=== PATIENT | female | born 1995 | race African-American/Black ===

== ENCOUNTER 2016-06-05 13:33 | Emergency (ER) | payer OTHER ==
[2016-06-05 13:41] VITALS: BP 128/68; PULSE 64; TEMP 97.9; BMI 37.3
--- NOTE | 2016-06-05 14:37 | PDOC ---
History of Present Illness - General Chief Complaint: Pain Stated Complaint: PAIN Time Seen by Provider: 06/05/16 13:49 History Source: Patient Exam Limitations: No Limitations - History of Present Illness Initial Comments: 06/05/16 14:33 20-year-old female presents the ED with worsening hydranitis suppurativa over the past few weeks. Patient states has not had time to go to her family practice physician assistant so decided come here. Patient also complaining secondary to pain that she's been a little nauseated without abdominal pain, fever or chills. Patient denies history of MRSA. Timing/Duration: getting worse Severity: mild, moderate Associated Symptoms: reports: denies symptoms Past History - Past Medical History Allergies/Adverse Reactions: Allergies Allergy/AdvReac Type Severity Reaction Status Date / Time hydrocodone bitartrate Allergy Nausea Verified 08/21/14 12:21 [From Vicodin] Home Medications: Ambulatory Orders NK [No Known Home Medication] 06/05/16 Anemia: Yes Psychiatric Problems: Yes (DEPRESSION.) Suicide Attempt (Hx): No Other medical history: hydranitis suppurativa - Surgical History Abdominal Surgery: No - Immunization History Immunization Up to Date: Yes - Psycho/Social/Smoking Cessation Hx Anxiety: No Suicidal Ideation: No Smoking Status: No Smoking History: Never smoked Have you smoked in the past 12 months: No Number of Cigarettes Smoked Daily: 0 Information on smoking cessation initiated: No Hx Alcohol Use: No Drug/Substance Use Hx: No Substance Use Type: None Patient Lives Alone: No Lives with/in: parents Review of Systems - Review of Systems Able to Perform ROS?: Yes Constitutional: No: Symptoms Reported HEENTM: No: Symptoms Reported Respiratory: No: Symptoms reported Cardiac (ROS): No: Symptoms Reported ABD/GI: Yes: Nausea : No: Symptoms Reported Musculoskeletal: No: Symptoms Reported Integumentary: Yes: See HPI Neurological: No: Symptoms reported Endocrine: No: Symptoms Reported Hematologic/Lymphatic: No: Symptoms Reported *Physical Exam - Vital Signs Last Vital Signs Temp Pulse Resp BP Pulse Ox 97.9 F 64 18 128/68 100 06/05/16 13:36 06/05/16 13:36 06/05/16 13:36 06/05/16 13:36 06/05/16 13:36 - Physical Exam General Appearance: Yes: Nourished, Appropriately Dressed. No: Apparent Distress HEENT: negative: Pale Conjunctivae Neck: positive: Supple Respiratory/Chest: positive: Lungs Clear, Normal Breath Sounds. negative: Respiratory Distress, Accessory Muscle Use Cardiovascular: positive: Regular Rhythm, Regular Rate. negative: Murmur Gastrointestinal/Abdominal: positive: Soft. negative: Tenderness Musculoskeletal: negative: CVA Tenderness Extremity: positive: Normal Capillary Refill. negative: Pedal Edema Integumentary: positive: Other (noted draining purulent erythematous papules to bilateral inguinal and inner thighs. ) Neurologic: positive: Motor Strength 5/5 (ambulatory), Other Medical Decision Making - Medical Decision Making 06/05/16 15:04 20-year-old hydradenitis supporativa to bilateral inguinal an inner thigh region. Patient states secondary to discomfort has had nausea but denies fever or chills. Patient ordered for urine urine culture urine and will discharge home with proper antibiotics once urine is resulted. 06/05/16 15:12 Laboratory Tests 06/05/16 14:40 Urine Ketones Negative Urine Blood 1+ H Urine HCG, Qual Negative 06/05/16 16:30 Laboratory Tests 06/05/16 14:40 Urine Blood 1+ H Urine Nitrite Negative Ur Leukocyte Esterase Negative Urine WBC 2 Urine HCG, Qual Negative Patient will be discharged home with Bactrim. Patient to follow up with family practice physician assistant. Patient requesting referral to surgeon. *DC/Admit/Observation/Transfer Diagnosis at time of Disposition: Hidradenitis suppurativa - Discharge Dispostion Disposition: HOME Condition at time of disposition: Improved - Referrals Referrals: Arsalan Guo MD [Primary Care Provider] - Alexandria Santiago MD [Staff Physician] - - Patient Instructions Printed Discharge Instructions: Hidradenitis Suppurativa Additional Instructions: Please take Bactrim as prescribed and use topical ointment as recommended. Please keep area clean and try to wear cotton under briefs. Also follow-up with your family practice physician assistant.
[2016-06-05 14:48] LABS: URINE APPEARANCE CLEAR; URINE BILIRUBIN NEGATIVE (NEGATIVE); URINE COLOR LTYELLOW; URINE GLUCOSE (UA) NEGATIVE (NEGATIVE); URINE KETONE NEGATIVE (NEGATIVE); URINE LEUK ESTERASE NEGATIVE (NEGATIVE); URINE NITRITE NEGATIVE (NEGATIVE); URINE PROTEIN NEGATIVE (NEGATIVE); URINE UROBILINOGEN NEGATIVE E.U./dl (0.2-1.0)
[2016-06-05 15:00] LABS: URINE BLOOD 1+ (NEGATIVE)
--- NOTE | 2016-06-05 15:00 | PDOC ---
*Physical Exam - Vital Signs Last Vital Signs Temp Pulse Resp BP Pulse Ox 97.9 F 64 18 128/68 100 06/05/16 13:36 06/05/16 13:36 06/05/16 13:36 06/05/16 13:36 06/05/16 13:36 - Physical Exam Comments: 06/05/16 15:00 MIDLEVEL NOTE Pt seen by Midlevel Provider under my direct supervision. Pt interviewed and examined. Ancillary studies reviewed. I agree with plan as outlined by Midlevel Provider. ED Treatment Course - ADDITIONAL ORDERS Additional order review: Laboratory Results 06/05/16 14:40 Urine HCG, Qual Negative *DC/Admit/Observation/Transfer Diagnosis at time of Disposition: Hidradenitis suppurativa - Discharge Dispostion Disposition: HOME Condition at time of disposition: Improved - Prescriptions Prescriptions: Sulfamethoxazole/Trimethoprim [Bactrim Ds -] 1 tab PO BID #14 tablet Mupirocin Ointment [Bactroban 2% Ointment -] 1 applic TP TID #1 tube - Referrals Referrals: Arsalan Guo MD [Primary Care Provider] - Alexandria Santiago MD [Staff Physician] - - Patient Instructions Printed Discharge Instructions: Hidradenitis Suppurativa Additional Instructions: Please take Bactrim as prescribed and use topical ointment as recommended. Please keep area clean and try to wear cotton under briefs. Also follow-up with your supply tech. - Post Discharge Activity Work/School Note: Back to Work
[2016-06-05 15:49] LABS: URINE MUCUS RARE; URINE RBC 2 /hpf (0-3); URINE WBC 2 /hpf (3-5)
== END 2016-06-05 16:55 | disposition home or self-care (01) ==
LOC: JER 13:33
DX: L73.2 Hidradenitis suppurativa (principal); D64.9 Anemia, unspecified; F32.9 Major depressive disorder, single episode, unspecified
CPT/HCPCS: 81003; 81015; 84703; 87086; 99282-25

== ENCOUNTER 2016-10-22 01:29 | Inpatient (IN) | payer OTHER ==
--- NOTE | 2016-10-22 02:56 | PDOC ---
History of Present Illness - General Chief Complaint: Pain, Acute Stated Complaint: ABDOMINAL PAIN Time Seen by Provider: 10/22/16 02:56 - History of Present Illness Initial Comments: 21 year old with PMH of hydratentis supporitiva presenting with vaginal bleeding and abdominal pain for the past 11 days. Her LMP was 09/07 and she assumed that this bleeding was from her expected period, however, she has continued to bleed sine 10/11 and has began passing clots which has been concerning. She states that she goes through about 10 "10" hour pads per day. She describes the abdominal pain as sharp across her suprapubic region and better with heat but worse with abdominal flexion or bearing down. She also admits to some occasional nausea. Denies urinary symptoms. She is not on oral contraceptives and does not use barrier protection either. She denies fevers, chills, vomiting, diarrhea, constipation ,chest pain, or other sick symptoms. 10/22/16 03:34 10/22/16 07:18 Past History - Past Medical History Allergies/Adverse Reactions: Allergies Allergy/AdvReac Type Severity Reaction Status Date / Time hydrocodone bitartrate Allergy Nausea Verified 10/22/16 02:21 [From Vicodin] Home Medications: Ambulatory Orders NK [No Known Home Medication] 10/22/16 Anemia: Yes Psychiatric Problems: Yes (DEPRESSION.) Suicide Attempt (Hx): No - Surgical History Abdominal Surgery: No - Immunization History Immunization Up to Date: Yes - Psycho/Social/Smoking Cessation Hx Anxiety: No Suicidal Ideation: No Smoking Status: No Smoking History: Never smoked Have you smoked in the past 12 months: No Number of Cigarettes Smoked Daily: 0 Information on smoking cessation initiated: No Hx Alcohol Use: No Drug/Substance Use Hx: No Substance Use Type: None Review of Systems - Review of Systems Constitutional: No: Chills, Diaphoresis, Fever HEENTM: No: Recent change in vision Respiratory: No: Cough, Shortness of Breath Cardiac (ROS): No: Chest Pain, Lightheadedness, Palpitations ABD/GI: Yes: Nausea. No: Abdominal Distended, Constipated, Diarrhea, Vomiting : No: Burning, Dysuria, Discharge *Physical Exam - Vital Signs Last Vital Signs Temp Pulse Resp BP Pulse Ox 98.2 F 91 H 20 120/84 100 10/22/16 02:21 10/22/16 02:21 10/22/16 02:21 10/22/16 02:21 10/22/16 02:21 - Physical Exam General Appearance: Yes: Nourished, Appropriately Dressed. No: Apparent Distress HEENT: positive: EOMI, MERLY, Normal ENT Inspection, Normal Voice Neck: positive: Trachea midline, Normal Thyroid, Supple. negative: Tender, Rigid Respiratory/Chest: positive: Lungs Clear, Normal Breath Sounds. negative: Chest Tender, Respiratory Distress, Accessory Muscle Use Cardiovascular: positive: Regular Rhythm, Regular Rate, S1, S2. negative: Edema , Murmur Female Pelvic Exam: positive: cervical os closed, normal adnexa (Fullness in adnexa bilaterally), vaginal bleeding. negative: normal external exam (blood around the external vagina) Gastrointestinal/Abdominal: positive: Normal Bowel Sounds, Tender (Suprapubic tenderness diffusely across the abdomino-pelvic fold. ), Flat, Soft Neurologic: positive: Fully Oriented, Alert, Normal Mood/Affect ED Treatment Course - LABORATORY CBC & Chemistry Diagram: 10/22/16 05:31 10/22/16 05:31 Medical Decision Making - Medical Decision Making 21 year old female with continued vaginal bleeding. Pelvic exam significant fro clots in the vagina and H&H significant for HgB of 7.0. Patient asymptomatic with VSS. Signed out to Dr. Guzman at 07:00. Pending repeat H&H @ 09 :00 and possible admission for tranfusion. TVUS also pending. 10/22/16 07:18 *DC/Admit/Observation/Transfer Diagnosis at time of Disposition: Anemia, Vaginal bleeding - Attestations Physician Attestion: 10/22/16 07:23 I, Dr. Nam Solano, attest that this document has been prepared under my direction and personally reviewed by me in its entirety. I further attest, that it accurately reflects all work, treatment, procedures and medical decision -making performed by me.
[2016-10-22 05:40] LABS: BASOPHIL 0.7 % (0-2.0); RDW 17.9 % (11.6-15.6); WHITE BLOOD COUNT 7.7 K/mm3 (4.0-10.0)
[2016-10-22 05:44] LABS: EOSINOPHIL 1.7 % (0-4.5); MCH 20.6 pg (25.7-33.7); MCHC 30.6 g/dl (32.0-36.0); MEAN CELL VOLUME 67.3 fl (80-96); MEAN PLT VOLUME 7.2 fl (7.5-11.1); NEUTROPHILS 53.5 % (42.8-82.8); PLATELET COUNT 599 K/MM3 (134-434)
[2016-10-22 06:00] LABS: INR 1.22 (0.82-1.09); PROTHROMBIN TIME (PATIENT) 13.5 SEC (9.98-11.88)
[2016-10-22 06:01] LABS: ALBUMIN 2.5 g/dl (3.4-5.0); ANION GAP 3 (8-16); CO2 30 mmol/L (21-32); CREATININE 0.8 mg/dL (0.55-1.02); GLUCOSE,RANDOM 86 mg/dL (74-106); SGOT/AST 16 U/L (15-37); SGPT/ALT 15 U/L (12-78)
[2016-10-22 06:04] LABS: ALK PHOS 89 U/L (45-117); BILIRUBIN,TOTAL 0.2 mg/dL (0.2-1.0); TOT PROT 8.4 g/dl (6.4-8.2)
--- NOTE | 2016-10-22 06:24 | PDOC ---
Attending Attestation - Resident Resident Name: Nam Solano - HPI HPI: 10/22/16 06:18 Pt comes with vag bleeding x 10 days. Recently she is bleeding clots. Pt doesn 't feel dizzy. - Physicial Exam PE: 10/22/16 06:22 Normal exam. Pt has active vag bleed, but not brisk on vag speculum exam. - Medical Decision Making 10/22/16 06:23 Anemia; Hb 7.0 Pt will have a 4 hour hemoglobin level drawn later this morning. Pt will also have a sonogram of her pelvis. Urine HCG is negative. Pt used to see Dr. España, but she has an appointment with Dr. Enrique next week. Dr. Enrique is debone supervisor. He should be consulted by phone in the morning, one 4hr Hb?HCT and sonogram results are back
--- NOTE | 2016-10-22 08:19 | PDOC ---
*Physical Exam - Vital Signs Last Vital Signs Temp Pulse Resp BP Pulse Ox 98.2 F 87 16 136/65 100 10/22/16 02:21 10/22/16 06:07 10/22/16 06:07 10/22/16 06:07 10/22/16 06:07 ED Treatment Course - LABORATORY CBC & Chemistry Diagram: 10/22/16 09:20 10/22/16 05:31 - ADDITIONAL ORDERS Additional order review: Laboratory Results 10/22/16 10/22/16 10/22/16 05:31 05:31 05:31 INR 1.22 H Sodium 139 Potassium 4.1 Chloride 106 Carbon Dioxide 30 Anion Gap 3 L BUN 11 Creatinine 0.8 Creat Clearance w eGFR > 60 Random Glucose 86 Calcium 8.0 L Total Bilirubin 0.2 D AST 16 D ALT 15 Alkaline Phosphatase 89 D Total Protein 8.4 H Albumin 2.5 L Urine HCG, Qual Blood Type O POSITIVE Antibody Screen Negative Spec Expiration Date 10/22/16 10/22/16 10/22/16 05:28 03:54 03:54 INR Sodium Cancelled Potassium Cancelled Chloride Cancelled Carbon Dioxide Cancelled Anion Gap Cancelled BUN Cancelled Creatinine Cancelled Creat Clearance w eGFR Cancelled Random Glucose Cancelled Calcium Cancelled Total Bilirubin Cancelled AST Cancelled ALT Cancelled Alkaline Phosphatase Cancelled Total Protein Cancelled Albumin Cancelled Urine HCG, Qual Negative Blood Type Cancelled Antibody Screen Cancelled Spec Expiration Date Cancelled 10/22/16 03:54 INR Cancelled Sodium Potassium Chloride Carbon Dioxide Anion Gap BUN Creatinine Creat Clearance w eGFR Random Glucose Calcium Total Bilirubin AST ALT Alkaline Phosphatase Total Protein Albumin Urine HCG, Qual Blood Type Antibody Screen Spec Expiration Date 10/22/16 10/22/16 05:31 03:54 RBC 3.39 L Cancelled MCV 67.3 L Cancelled MCHC 30.6 L Cancelled RDW 17.9 H D Cancelled MPV 7.2 L Cancelled Neutrophils % 53.5 Cancelled Lymphocytes % 40.5 H Cancelled Monocytes % 3.6 L Cancelled Eosinophils % 1.7 Cancelled Basophils % 0.7 Cancelled Medical Decision Making - Medical Decision Making 10/22/16 09:54 "21 year old female with continued vaginal bleeding. Pelvic exam significant for clots in the vagina and H&H significant for HgB of 7.0. Patient asymptomatic with VSS." 10/22/16 10:06 HgB now 6.6. PAtient remembers she receives Remicade (infliximab) IV every month for Hidradenitis Suppurativa treatment for 3 years. Possible side effect. Spoke to OBGYN Dr. Roberts who agreed to have patient admitted to hospitalist/ observation and he/ll see the patient there. 10/22/16 10:22 *DC/Admit/Observation/Transfer Diagnosis at time of Disposition: Anemia, Vaginal bleeding - Discharge Dispostion Admit: Yes - Referrals Referrals: Arsalan Guo MD [Primary Care Provider] - Roni Enrique MD [Staff Physician] - - Patient Instructions - Post Discharge Activity
[2016-10-22 09:32] LABS: WHITE BLOOD COUNT 6.7 K/mm3 (4.0-10.0)
[2016-10-22 09:33] LABS: BASOPHIL 0.6 % (0-2.0); EOSINOPHIL 1.5 % (0-4.5); MCH 20.9 pg (25.7-33.7); MCHC 31.1 g/dl (32.0-36.0); MEAN CELL VOLUME 67.2 fl (80-96); MEAN PLT VOLUME 6.7 fl (7.5-11.1); NEUTROPHILS 48.5 % (42.8-82.8); PLATELET COUNT 522 K/MM3 (134-434); RDW 18.2 % (11.6-15.6)
--- NOTE | 2016-10-22 11:12 | HP ---
CHIEF COMPLAINT: shortness of breath and vaginal bleeding PCP: Dr. Guo HISTORY OF PRESENT ILLNESS: 21 yr old woman with Hidradenitis Suppurativa on infliximab infusion monthly with delayed dosing this month, presents with SOB for one day, lower abdominal pain and prolonged vaginal bleeding and watery vaginal discharge since october 14. Abdominal pain is nonradiating, marked in the lower quadrants, started last night, continuos, no alleviating or exacerbating factors. Normally receives infliximab on October 07, but was unable to get appointment till the . Usually menstruation lasts 4 days and occurs regularly between the or of each the month. vaginal discharge started few days ago, not foul smelling. a/w loss of appetite for past two days, constipation, shortness of breath on exertion. denies chest pain, palpitation, headache, n/v, diarrhea. ER course was notable for: (1) repeat h/h, with drop from 7.0 to 6.6 in 4 hours. Social History: sexually active with one male partner, not on oral control, does not use condoms. denies hx of STD's Allergies hydrocodone bitartrate [From Vicodin] Allergy (Verified 10/22/16 02:21) Nausea PHYSICAL EXAMINATION Vital Signs - 24 hr 10/22/16 10/22/16 10/22/16 02:21 06:07 09:54 Temperature 98.2 F Pulse Rate 91 H Pulse Rate [ 87 62 Right Radial] Respiratory 20 16 16 Rate Blood Pressure 120/84 Blood Pressure 136/65 106/54 [Right Arm] O2 Sat by Pulse 100 100 100 Oximetry (%) GENERAL: Awake, alert, and fully oriented, in no acute distress. EYES: Pupils equal, round and reactive to light, extraocular movements intact, sclera anicteric, conjunctiva clear. No lid lag. EARS, NOSE, THROAT: ooropharynx clear without exudates. Moist mucous membranes. NECK: supple without lymphadenopathy, JVD, or masses. LUNGS: Breath sounds equal, clear to auscultation bilaterally. No wheezes, and no crackles. No accessory muscle use. HEART: Regular rate and rhythm, normal S1 and S2 without murmur, rub or gallop. ABDOMEN: Soft, diffusely mildy tender, marking in the lower quadrants and suprapubically, not distended, normoactive bowel sounds, + guarding in right lower quadrant, no rebound, no masses. MUSCULOSKELETAL: no CVA tenderness. UPPER EXTREMITIES: 2+ radial pulses, warm, well-perfused. No cyanosis. No clubbing. No peripheral edema. NEUROLOGICAL: facial symmetry, Normal speech. Normal gait. PSYCHIATRIC: Cooperative. Good eye contact. Appropriate mood and affect. PELVIC: flat macular ulcers without discharge in groin area throughout, active dark red clots expressed from vagina with scant brb Laboratory Results - last 24 hr 10/22/16 10/22/16 05:28 05:31 Corrected WBC (auto) RBC Hgb Hct MCV MCH MCHC RDW Plt Count MPV Neutrophils % Lymphocytes % Monocytes % Eosinophils % Basophils % Nucleated RBC % Hypersegmented Neuts Hypochromia Toxic Granulation Dohle Bodies Tyler Rods Platelet Estimate Platelet Comment RBC Morphology Polychromasia Poikilocytosis Basophilic Stippling Anisocytosis Microcytosis Macrocytosis Spherocytes Siderocytes Sickle Cells Target Cells Tear Drop Cells Ovalocytes Stomatocytes Helmet Cells [place] Bodies [place] Rings Yvrose Cells Acanthocytes (Spur) Rouleaux Fragmented RBCs Schistocytes Morphology Comment INR Sodium 139 Potassium 4.1 Chloride 106 Carbon Dioxide 30 Anion Gap 3 L BUN 11 Creatinine 0.8 Creat Clearance w eGFR > 60 Random Glucose 86 Calcium 8.0 L Total Bilirubin 0.2 D AST 16 D ALT 15 Alkaline Phosphatase 89 D Total Protein 8.4 H Albumin 2.5 L Urine HCG, Qual Negative Blood Type Antibody Screen Crossmatch Spec Expiration Date 10/22/16 10/22/16 10/22/16 05:31 05:31 05:31 WBC 7.7 Corrected WBC (auto) RBC 3.39 L Hgb 7.0 L D Hct 22.9 L D MCV 67.3 L MCH 20.6 L MCHC 30.6 L RDW 17.9 H D Plt Count 599 H D MPV 7.2 L Neutrophils % 53.5 Lymphocytes % 40.5 H Monocytes % 3.6 L Eosinophils % 1.7 Basophils % 0.7 Nucleated RBC % Hypersegmented Neuts Hypochromia Toxic Granulation Dohle Bodies Tyler Rods Platelet Estimate Platelet Comment RBC Morphology Polychromasia Poikilocytosis Basophilic Stippling Anisocytosis Microcytosis Macrocytosis Spherocytes Siderocytes Sickle Cells Target Cells Tear Drop Cells Ovalocytes Stomatocytes Helmet Cells [place] Bodies [place] Rings [place] Cells Acanthocytes (Spur) Rouleaux Fragmented RBCs Schistocytes Morphology Comment INR 1.22 H Sodium Potassium Chloride Carbon Dioxide Anion Gap BUN Creatinine Creat Clearance w eGFR Random Glucose Calcium Total Bilirubin AST ALT Alkaline Phosphatase Total Protein Albumin Urine HCG, Qual Blood Type O POSITIVE Antibody Screen Negative Crossmatch Spec Expiration Date 10/22/16 10/22/16 08:45 09:20 WBC 6.7 Corrected WBC (auto) RBC 3.17 L Hgb 6.6 L* Hct 21.3 L MCV 67.2 L MCH 20.9 L MCHC 31.1 L RDW 18.2 H Plt Count 522 H MPV 6.7 L Neutrophils % 48.5 Lymphocytes % 43.4 H Monocytes % 6.0 Eosinophils % 1.5 Basophils % 0.6 Nucleated RBC % Hypersegmented Neuts Hypochromia Toxic Granulation Dohle Bodies Tyler Rods Platelet Estimate Platelet Comment RBC Morphology Polychromasia Poikilocytosis Basophilic Stippling Anisocytosis Microcytosis Macrocytosis Spherocytes Siderocytes Sickle Cells Target Cells Tear Drop Cells Ovalocytes Stomatocytes Helmet Cells [place] Bodies [place] Rings Yvrose Cells Acanthocytes (Spur) Rouleaux Fragmented RBCs Schistocytes Morphology Comment INR Sodium Potassium Chloride Carbon Dioxide Anion Gap BUN Creatinine Creat Clearance w eGFR Random Glucose Calcium Total Bilirubin AST ALT Alkaline Phosphatase Total Protein Albumin Urine HCG, Qual Blood Type O POSITIVE Antibody Screen Crossmatch See Detail Spec Expiration Date ASSESSMENT/PLAN: 21 yr woman with HS(on infliximab) presents with symptomatic anemia secondary to dysfunctional uterine bleeding. #symptomatic anemia secondary to dyfunctional uterine bleeding - tranfuse 2 units prbc's, may require additional if vaginal bleeding continues , repeat CBC after 2nd unit - retic count, TSH, serum iron, vit b12, folic acid, tibc and ferritin to evaluate acute on chronic anemia - pt may need thalassemia w/u given family history of anemia - instrumentation and control technician consult with dr. baker for further evaluation #HS - continue outpatient tx as per pcp #Diet: regular #DVT: possible need for surgical intervention therefore defer medical anticogulation for now, recommend ambulation, anticipate short stay. Visit type - Emergency Visit Emergency Visit: Yes ED Registration Date: 10/22/16 Care time: The patient presented to the Emergency Department on the above date and was hospitalized for further evaluation of their emergent condition. - New Patient This patient is new to me today: Yes Date on this admission: 10/22/16 - Critical Care Critical Care patient: No
--- NOTE | 2016-10-22 12:40 | PN ---
Teaching Attending Note Name of Resident: Bonnie Aldridge ATTENDING PHYSICIAN STATEMENT I saw and evaluated the patient. I reviewed the resident's note and discussed the case with the resident. I agree with the resident's findings and plan as documented. SUBJECTIVE: The reports feeling dizzy when she stands. She reports a family history of anemia of unclear etiology OBJECTIVE: Vitals noted CBC noted Low MCV Slightly high RDW ASSESSMENT AND PLAN: Dysfunctional Uterine Bleeding Symptomatic anemia, likely acute blood loss superimposed on chronic I suspect the chronic anemia is due to iron deficiency She may also have undiagnosed Thalessemia (given family history) Anemia work-up Transfuse 2 units PRBCs HAND STRIPPER consult See resident note for full details
[2016-10-22 12:45] LABS: HYPOCHROMIA 3+; MICROCYTOSIS 3+; POIKILOCYTOSIS 1+
[2016-10-22 13:10] VITALS: BMI 39.7
--- NOTE | 2016-10-22 13:59 | CON.OBG ---
Consult Consult Specialty:: backwinder - History of Present Illness Chief Complaint: vaginal bleeding. anemia History of Present Illness: 21 yo f lmp 10/14/16 still bleeding , periods regular but heavy.llasting 5 to 7 days with cramps. exually active on no bcp, admitted for anemai, dizziness , still having vaginal bleeding, CBC, BMP 10/22/16 09:20 10/22/16 05:31 - History Source History Provided By: Patient Limitations to Obtaining History: No Limitations - Past Medical History ...LMP: 10/14/16 ...LMP Comment: heavy and still occurring ...: No Heme/Onc: Yes: Anemia - Alcohol/Substance Use Hx Alcohol Use: No - Smoking History Smoking history: Never smoked Have you smoked in the past 12 months: No Aproximately how many cigarettes per day: 0 - Social History History of Recent Travel: No Home Medications - Allergies Allergies/Adverse Reactions: Allergies Allergy/AdvReac Type Severity Reaction Status Date / Time hydrocodone bitartrate Allergy Nausea Verified 10/22/16 02:21 [From Vicodin] - Home Medications Home Medications: Ambulatory Orders NK [No Known Home Medication] 10/22/16 Review of Systems - Review of Systems Constitutional: reports: Weakness Eyes: reports: No Symptoms HENT: reports: No Symptoms Neck: reports: No Symptoms Cardiovascular: reports: No Symptoms Respiratory: reports: No Symptoms Gastrointestinal: reports: No Symptoms Genitourinary: reports: No Symptoms Breasts: reports: No Symptoms Reported Musculoskeletal: reports: No Symptoms Integumentary: reports: No Symptoms Neurological: reports: Headache Endocrine: reports: No Symptoms Psychiatric: reports: No Symptoms Physical Exam-BUFFET MANAGER Vital Signs: Vital Signs Temperature 98.1 F 10/22/16 12:51 Pulse Rate 20 L 10/22/16 12:51 Respiratory Rate 68 H 10/22/16 12:51 Blood Pressure 122/68 10/22/16 12:51 O2 Sat by Pulse Oximetry (%) 100 10/22/16 11:50 Constitutional: Yes: Well Nourished, No Distress, Calm, Obese Eyes: Yes: WNL, Conjunctiva Clear, EOM Intact HENT: Yes: WNL, Atraumatic, Normocephalic Neck: Yes: WNL, Supple, Trachea Midline Cardiovascular: Yes: WNL, Regular Rate and Rhythm Respiratory: Yes: WNL, Regular, CTA Bilaterally Gastrointestinal: Yes: WNL, Soft Renal/: Yes: WNL Internal Exam Deferred: Yes Breast(s): Yes: WNL Musculoskeletal: Yes: WNL Extremities: Yes: WNL Integumentary: Yes: WNL Neurological: Yes: WNL, Alert, Oriented ...Motor Strength: WNL Psychiatric: Yes: WNL, Alert, Oriented Problem List - Problems (1) Menorrhagia Code(s): N92.0 - EXCESSIVE AND FREQUENT MENSTRUATION WITH REGULAR CYCLE Qualifiers: Menorrahagia type: with regular cycle Qualified Code(s): N92.0 - Excessive and frequent menstruation with regular cycle (2) Iron deficiency Code(s): E61.1 - IRON DEFICIENCY (3) Iron deficiency anemia Code(s): D50.9 - IRON DEFICIENCY ANEMIA, UNSPECIFIED Qualifiers: Iron deficiency anemia type: chronic blood loss Qualified Code(s): D50.0 - Iron deficiency anemia secondary to blood loss (chronic) Assessment/Plan heavy menses , normal pelvic sono , most likly secondary to anovulation and obesity, r/o other causes of chronic anemia will start om provera 10 mg daily for 10 days , follow up in office one week blood transfusion
[2016-10-22 14:35] LABS: THYROID STIMULATING HORMONE 2.67 uIU/ml (0.358-3.74)
--- NOTE | 2016-10-22 15:34 | HP ---
CHIEF COMPLAINT: passage of blood clots x5 days PCP: Dr. Guo HISTORY OF PRESENT ILLNESS: 21 y/o G1PO (terminated ) F with Hx of hidradenitis suppurativa (dx age 14, currently tx with infliximab) and iron deficiency anemia (dx 1 yr ago), who presented to the ED with prolonged vaginal bleeding and passage of dark blood clots over the past 5 days. As per pt, her period began on 10/14 as usual, with the first 2 days as the heaviest. She changed 2 pads a day until 10/18. However, on 10/18, pt noticed passage of dark red blood clots, accompanied with bad cramps. At this pt, pt began to change pads 8x a day. On 10/20, pt started to notice copious amounts of clear vaginal discharge that were not foul smelling. During this time, pt has also experienced sharp, 10/10 abdominal pain in her midepigastric and suprapubic area. On admission, pt endorses palpitations, transient lightheadedness upon sitting and standing, and well as nausea without emesis. Pt denies visual changes, dysuria, melena, hematochezia. She is due to see her line haul driver, Dr. Hartman this Monday. ER course was notable for: (1) Hb drop from 7 to 6.6 (2) Transvaginal US: trace free pelvic free fluid (3) 2 unit PRBC transfusion Recent Travel: none PAST MEDICAL HISTORY: hidradenitis suppurativa (dx age 14, tx with infliximab), iron deficiency anemia (for past yr, prescribed iron but stopped taking it because it made her constipated) PAST SURGICAL HISTORY: none Social History: Smoking: denies Alcohol:socially Drugs: weed twice a week Family History: HTN in grandma, anemia in sister, mother Allergies hydrocodone bitartrate [From Vicodin] Allergy (Verified 10/22/16 02:21) Nausea HOME MEDICATIONS: Home Medications Medication Instructions Recorded NK [No Known Home Medication] 10/22/16 -Infliximab REVIEW OF SYSTEMS CONSTITUTIONAL: Absent: fever, chills, diaphoresis, generalized weakness, malaise, loss of appetite, weight change HEENT: Absent: rhinorrhea, nasal congestion, throat pain, throat swelling, difficulty swallowing, mouth swelling, ear pain, eye pain, visual changes CARDIOVASCULAR: +palpitations Absent: chest pain, syncope, palpitations, irregular heart rate, lightheadedness , peripheral edema RESPIRATORY: Absent: cough, shortness of breath, dyspnea with exertion, orthopnea, wheezing, stridor, hemoptysis GASTROINTESTINAL: +abdominal pain, nausea Absent: abdominal pain, abdominal distension, nausea, vomiting, diarrhea, constipation, melena, hematochezia GENITOURINARY: +dark red clots Absent: dysuria, frequency, urgency, hesitancy, hematuria, flank pain, genital pain MUSCULOSKELETAL: Absent: myalgia, arthralgia, joint swelling, back pain, neck pain SKIN: Absent: rash, itching, pallor HEMATOLOGIC/IMMUNOLOGIC: Absent: easy bleeding, easy bruising, lymphadenopathy, frequent infections ENDOCRINE: Absent: unexplained weight gain, unexplained weight loss, heat intolerance, cold intolerance NEUROLOGIC: Absent: headache, focal weakness or paresthesias, dizziness, unsteady gait, seizure, mental status changes, bladder or bowel incontinence PSYCHIATRIC: Absent: anxiety, depression, suicidal or homicidal ideation, hallucinations. PHYSICAL EXAMINATION Vital Signs - 24 hr 10/22/16 10/22/16 10/22/16 11:35 11:50 12:51 Temperature 98.6 F 98.2 F 98.1 F Pulse Rate 20 L Pulse Rate [ 72 71 Right Radial] Respiratory 16 16 68 H Rate Blood Pressure 122/68 Blood Pressure 121/70 105/63 [Right Arm] O2 Sat by Pulse 100 100 Oximetry (%) 10/22/16 13:58 Temperature Pulse Rate Pulse Rate [ Right Radial] Respiratory Rate Blood Pressure Blood Pressure [Right Arm] O2 Sat by Pulse 98 Oximetry (%) GENERAL: Awake, alert, and fully oriented, in no acute distress. HEAD: Normal with no signs of trauma. EYES: Pupils equal, round and reactive to light, extraocular movements intact, sclera anicteric, conjunctiva clear. NECK: Normal range of motion, supple without lymphadenopathy, JVD, or masses. LUNGS: Breath sounds equal, clear to auscultation bilaterally. No wheezes, and no crackles. No accessory muscle use. HEART: Regular rate and rhythm, normal S1 and S2 without murmur, rub or gallop. ABDOMEN: tender to palpation mid-epigastric area, RLQ, LLQ, voluntary guarding RLQ MUSCULOSKELETAL: Normal range of motion at all joints. No bony deformities or tenderness. No CVA tenderness. LOWER EXTREMITIES: 2+ posterior tibial pulses, warm, well-perfused. No calf tenderness. No peripheral edema. NEUROLOGICAL: Cranial nerves II-XII intact. PRODUCT MERCHANDISER: flat ulcers in groin area, active bleeding, passage of dark red clots from vagina ASSESSMENT/PLAN: 21 y/o G1PO (terminated ) F with Hx of hidradenitis suppurativa (dx age 14, currently tx with infliximab) and iron deficiency anemia (dx 1 yr ago), who presented to the ED with prolonged vaginal bleeding and passage of dark blood clots over the past 5 days. #Symptomatic anemia secondary to acute on chronic blood loss -pt sx with palpitations, lightheadedness upon sitting and standing, active passage of red clots from vagina -Hb drop from 7 to 6.6 over 4 hrs -Pt tranfused 2 units of PRBCs -Will f/u CBC post-transfusion -F/u retics, iron studies, B12, Folate, TSH #RLQ tenderness, abdominal pain -urine Bhcg negative -r/o pelvic inflammatory disease, or other etiologies -F/u GC/chlymidia NAAT #Hidradenitis suppurativa -Continue infliximab #Prophylaxis -DVT: early ambulation F/E/N -currently not on fluids -monitor electrolytes -Regular diet Visit type - Emergency Visit Emergency Visit: Yes ED Registration Date: 10/22/16 Care time: The patient presented to the Emergency Department on the above date and was hospitalized for further evaluation of their emergent condition. - New Patient This patient is new to me today: Yes Date on this admission: 10/22/16 - Critical Care Critical Care patient: No
--- NOTE | 2016-10-22 18:38 | EKG ---
Test Reason : Blood Pressure : / mmHG Vent. Rate : 064 BPM Atrial Rate : 064 BPM P-R Int : 166 ms QRS Dur : 088 ms QT Int : 434 ms P-R-T Axes : 032 012 036 degrees QTc Int : 447 ms NORMAL SINUS RHYTHM MINIMAL VOLTAGE CRITERIA FOR LVH, MAY BE NORMAL VARIANT BORDERLINE ECG WHEN COMPARED WITH ECG OF 04-OCT-2013 12:52, NO SIGNIFICANT CHANGE WAS FOUND Confirmed by ROSE COBOS MD ([id number]) on 10/22/2016 6:37:31 PM Referred By: Confirmed By:ROSE COBOS MD
[2016-10-22] MEDS ORDERED: IBUPROFEN 600 MG TABLET (FP) PO ONE (19:02)
--- NOTE | 2016-10-22 22:13 | DS ---
Physical Exam: SUBJECTIVE: Patient seen and examined at bedside. States that she is feeling much better and is no longer feeling lightheaded. She has been OOB and is tolerating diet, denies abdominal pain. OBJECTIVE: Vital Signs Period Temp Pulse Resp BP Sys/Schaeffer Pulse Ox Last 24 Hr 97.8 F-98.5 F 18-77 18-90 106-131/54-83 98 PHYSICAL EXAM GENERAL: The patient is awake, alert, and fully oriented, in no acute distress. HEAD: Normal with no signs of trauma. EYES: PERRL, extraocular movements intact, sclera anicteric, conjunctiva clear. NECK: Trachea midline, full range of motion, supple. LUNGS: Breath sounds equal, clear to auscultation bilaterally, no wheezes, no crackles, no accessory muscle use. HEART: Regular rate and rhythm, S1, S2 without murmur, rub or gallop. ABDOMEN: Soft, nontender, nondistended, normoactive bowel sounds, no guarding, no rebound, no hepatosplenomegaly, no masses. EXTREMITIES: 2+ posterior tibial pulses, warm, well-perfused, no edema. NEUROLOGICAL: Cranial nerves II through XII grossly intact. LABS 10/22/16 10/22/16 10/22/16 05:28 05:31 05:31 Hgb 7.0 L D Hct 22.9 L D MCV 67.3 L MCH 20.6 L MCHC 30.6 L RDW 17.9 H D Plt Count 599 H D MPV 7.2 L Hypochromia 3+ Poikilocytosis 1+ Microcytosis 3+ Retic Count INR Sodium 139 Potassium 4.1 Chloride 106 Carbon Dioxide 30 Anion Gap 3 L BUN 11 Creatinine 0.8 Creat Clearance w eGFR > 60 Random Glucose 86 Calcium 8.0 L AST 16 D ALT 15 Albumin 2.5 L Vitamin B12 411 Serum Folate 12 TSH 2.67 Urine HCG, Qual Negative 10/22/16 10/22/16 10/22/16 05:31 07:00 09:20 Hgb 6.6 L* Hct 21.3 L MCV 67.2 L MCH 20.9 L MCHC 31.1 L RDW 18.2 H Plt Count 522 H MPV 6.7 L Hypochromia Poikilocytosis Microcytosis Retic Count 1.96 H INR 1.22 H Sodium Potassium Chloride Carbon Dioxide Anion Gap BUN Creatinine Creat Clearance w eGFR Random Glucose Calcium AST ALT Albumin Vitamin B12 Serum Folate TSH Urine HCG, Qual IMAGING 10/22/16 Transvaginal US: uterus normal in size. No uterine masses. A normal appearing endometrium of 2mm thickness was demonstrated. Nabothian cysts are noted within the cervix. The ovaries are normal in size and texture, with arterial flow documented in both overaries. Small R ovarian cyst measuring 1.3x1.1x1.2cm.No evidence of adnexal masses. Trace amount of free fluid within the cul-de sac. 10/22/16: EKG: normal sinus rhythm HOSPITAL COURSE: Date of Admission:10/22/16 Date of Discharge: 10/22/16 Admit diagnosis: Symptomatic anemia secondary to acute on chronic blood loss Pre-admission course 21 y/o G1PO (terminated ) F with Hx of hidradenitis suppurativa (dx age 14, currently tx with infliximab) and iron deficiency anemia (dx 1 yr ago), who presented to the ED with prolonged vaginal bleeding and passage of dark blood clots over the past 5 days. As per pt, her period began on 10/14 as usual, with the first 2 days as the heaviest. She changed 2 pads a day until 10/18. However, on 10/18, pt noticed passage of dark red blood clots, accompanied with bad cramps. At this pt, pt began to change pads 8x a day. On 10/20, pt started to notice copious amounts of clear vaginal discharge that were not foul smelling. During this time, pt has also experienced sharp, 10/10 abdominal pain in her midepigastric and suprapubic area. On admission, pt endorses palpitations, transient lightheadedness upon sitting and standing, and well as nausea without emesis. Pt denies visual changes, dysuria, melena, hematochezia. She is due to see her web site project manager, Dr. Hartman this Monday. ER course was notable for: (1) Hb drop from 7 to 6.6 (2) Transvaginal US: trace free pelvic free fluid (3) 2 unit PRBC transfusion Hospital course Pt was managed for her symptomatic anemia and Hb drop from 7 to 6.6. She received 2 units of PRBCs. Pt was evaluated also by her web site project manager, Dr. Enrique who recommended f/u as outpt in 1 wk and 10 day course of Provera 10mg tablet. Minutes to complete discharge: 32 Discharge Summary Reason For Visit: ANEMIA; VAGINAL BLEEDING Current Active Problems Anemia (Acute) Iron deficiency anemia (Acute) Menorrhagia (Acute) Vaginal bleeding (Acute) Condition: Stable - Instructions Diet, Activity, Other Instructions: You were recently in the hospital for vaginal bleeding. While you were here, you received 2 units of blood. Your web site project manager also saw you while you were here. Please take the following medication at home: -Provera 10mg (1 tablet) once a day, starting tomorrow (10/23/16) for the next 10 days Start taking your iron pills again and bring the bottles with you to Dr. Enrique so they can be prescribed again if needed. Please follow-up with Dr. Enrique on Monday as schedule, as well as your primary care physician. You may resume your home medications. If you develop shortness of breath, chest pain, or any new symptoms, please go to the hospital. We hope you feel better soon. Referrals: Arsalan Guo MD [Primary Care Provider] - Roni Enrique MD [Staff Physician] - Disposition: HOME - Home Medications Comprehensive Discharge Medication List: Ambulatory Orders Medroxyprogesterone Acetate [Provera -] 10 mg PO DAILY #10 tablet 10/22/16 This patient is new to me today: No Emergency Visit: No Critical Care patient: No - Discharge Referral Referred to [facility] Med P.C.: No
[2016-10-23 06:36] LABS: SERUM IRON 17 ug/dL (27-159); TOTAL IRON BINDING CAPACITY 312 ug/dL (250-450); UIBC 295 ug/dL (131-425)
[2016-10-23 08:12] LABS: MCH 22.8 pg (25.7-33.7); MCHC 32.1 g/dl (32.0-36.0); MEAN PLT VOLUME 7.5 fl (7.5-11.1); PLATELET COUNT 542 K/MM3 (134-434); RDW 20.2 % (11.6-15.6); WHITE BLOOD COUNT 7.6 K/mm3 (4.0-10.0)
[2016-10-23 08:17] LABS: ANION GAP 3 (8-16); CALCIUM 8.5 mg/dL (8.5-10.1); CO2 30 mmol/L (21-32); GLUCOSE,RANDOM 88 mg/dL (74-106)
[2016-10-23 08:18] LABS: CREATININE 0.8 mg/dL (0.55-1.02)
[2016-10-23 08:32] LABS: INR 1.11 (0.82-1.09); PROTHROMBIN TIME (PATIENT) 12.2 SEC (9.98-11.88)
--- NOTE | 2016-10-23 11:55 | PN ---
Physical Exam: SUBJECTIVE: Patient seen and examined. Bleeding has stopped. She feels significantly improved. She wants to go home. She has iron pills at home and will resume them. She has an appointment with [facility]IST Monday. OBJECTIVE: Vital Signs Period Temp Pulse Resp BP Sys/Schaeffer Pulse Ox Last 24 Hr 97.8 F-98.8 F 18-77 18-90 106-148/54-83 97-98 GEN: Awake, alert CVS: RRR PULM: CTAB ABD: soft, NT/ND, NABS EXTREM: warm ,well perfused Laboratory Results - last 24 hr 10/22/16 10/23/16 10/23/16 14:20 07:10 07:10 WBC 7.6 RBC 3.71 Hgb 8.5 L D Hct 26.3 L D MCV 71.0 L MCH 22.8 L MCHC 32.1 RDW 20.2 H D Plt Count 542 H MPV 7.5 D INR 1.11 Sodium Potassium Chloride Carbon Dioxide Anion Gap BUN Creatinine Random Glucose Calcium Iron 17 L TIBC 312 Iron Saturation 5 L 10/23/16 07:10 WBC RBC Hgb Hct MCV MCH MCHC RDW Plt Count MPV INR Sodium 139 Potassium 4.5 Chloride 106 Carbon Dioxide 30 Anion Gap 3 L BUN 13 Creatinine 0.8 Random Glucose 88 Calcium 8.5 Iron TIBC Iron Saturation Active Medications Generic Name Dose Route Start Last Admin Trade Name Freq PRN Reason Stop Dose Admin Medroxyprogesterone Acetate 10 mg 10/22/16 16:00 10/23/16 11:28 Provera - PO 10 mg DAILY JET Administration ASSESSMENT/PLAN: Dysfunctional Uterine Bleeding Anemia She is stable for discharge and will follow up with EXPL[facility]IVE SPECIALIST as scheduled Wed See resident discharge summary Visit type - Emergency Visit Emergency Visit: Yes ED Registration Date: 10/22/16 Care time: The patient presented to the Emergency Department on the above date and was hospitalized for further evaluation of their emergent condition. - New Patient This patient is new to me today: No - Critical Care Critical Care patient: No
[2016-10-23 12:32] VITALS: BP 108/60; PULSE 68; TEMP 98
== END 2016-10-23 12:42 | disposition home or self-care (01) | DRG 532 ==
LOC: JER 01:29 → JERBED 11:01 → OBSVTOIN 12:32 → J5S 12:36
PROVIDERS: ADMIT Internal Medicine; ATTEND Internal Medicine
PROC: 30233N1 Transfusion of Nonautologous Red Blood Cells into Peripheral Vein, Percutaneous Approach (ICD-10-PCS; principal; 2016-10-22)
DX: N93.8 Other specified abnormal uterine and vaginal bleeding (principal); F32.9 Major depressive disorder, single episode, unspecified; L73.2 Hidradenitis suppurativa; D56.8 Other thalassemias; D50.0 Iron deficiency anemia secondary to blood loss (chronic); N92.0 Excessive and frequent menstruation with regular cycle; R10.31 Right lower quadrant pain; R00.2 Palpitations; R42 Dizziness and giddiness; L98.499 Non-pressure chronic ulcer of skin of other sites with unspecified severity; E66.8 Other obesity; Z68.39 Body mass index [BMI] 39.0-39.9, adult
CPT/HCPCS: 36415; 36430; 76830-TC; 80048; 80053; 82607; 82746; 83540; 83550; 84443; 84703; 85025; 85027; 85044; 85610; 86850; 86900; 86901; 86922; 93005; 93010; 99285-25; G0378; P9038; P9058

== ENCOUNTER 2018-07-10 15:32 | Emergency (ER) | payer OTHER ==
[2018-07-10] MEDS ORDERED: SODIUM CHLORIDE 1,000 ML IV STA (15:55)
--- NOTE | 2018-07-10 15:55 | PDOC ---
Rapid Medical Evaluation Time Seen by Provider: 07/10/18 15:53 Medical Evaluation: Allergies Allergy/AdvReac Type Severity Reaction Status Date / Time hydrocodone bitartrate Allergy Nausea Verified 07/10/18 15:52 [From Vicodin] 07/10/18 15:53 I have performed a brief in-person evaluation of this patient. The patient presents with a chief complaint of: sent for anemia Pertinent physical exam findings: VSS, AF. pale MM. RRR. I have ordered the following: labs, t&s, urine The patient will proceed to the ED for further evaluation. Discharge Disposition - Diagnosis Anemia - Referrals - Patient Instructions - Post Discharge Activity
[2018-07-10 15:56] VITALS: TEMP 98.1; BMI 25.1
--- NOTE | 2018-07-10 17:11 | PDOC ---
History of Present Illness - General Chief Complaint: Revisit, Lab Variance Stated Complaint: SENT BY PCP Time Seen by Provider: 07/10/18 15:53 History Source: Patient Exam Limitations: No Limitations - History of Present Illness Initial Comments: 07/10/18 17:09 22 year old woman with Hx of hidradenitis suppurativa (dx age 14, currently tx with infliximab) and iron deficiency anemia who presented to the ED from PCP for concern over low H/H. Per patient she went to her PCP yesterday for blood tests because she felt weak and lightheaded when standing up. She reports that last week she has had a common cold but denies any recent fevers, chest pain, shortness of breath, abdominal pain, dysuria, hematuria, vaginal bleeding, blood in stool. She takes iron supplrements sporadically bc of the constipation that occurs with tthe supplements. She has required blood infustion once in the past. She has no other complaints at bedside. LNMP: 06/12/18 Past History - Past Medical History Allergies/Adverse Reactions: Allergies Allergy/AdvReac Type Severity Reaction Status Date / Time hydrocodone bitartrate Allergy Nausea Verified 07/10/18 15:52 [From Vicodin] Home Medications: Ambulatory Orders Medroxyprogesterone Acetate [Provera -] 10 mg PO DAILY #10 tablet 10/22/16 Anemia: Yes COPD: No Psychiatric Problems: Yes (DEPRESSION.) Other medical history: HS - Surgical History Abdominal Surgery: No (GASTRIC BYPASS) - Reproductive History Cervical CA: No Ectopic : No Endometrial CA: No - Immunization History Immunization Up to Date: Yes - Suicide/Smoking/Psychosocial Hx Smoking Status: No Smoking History: Never smoked Have you smoked in the past 12 months: No Number of Cigarettes Smoked Daily: 0 Cigars Per Day: 0 Hx Alcohol Use: No Drug/Substance Use Hx: No Substance Use Type: None Hx Substance Use Treatment: No Review of Systems - Review of Systems Able to Perform ROS?: Yes Comments:: 07/10/18 17:43 07/10/18 17:10 GENERAL/CONSTITUTIONAL: No fever or chills. No weakness. HEAD, EYES, EARS, NOSE AND THROAT: No change in vision. No ear pain or discharge. No sore throat. CARDIOVASCULAR: No chest pain or shortness of breath RESPIRATORY: No cough, wheezing, or hemoptysis. GASTROINTESTINAL: No nausea, vomiting, diarrhea or constipation. GENITOURINARY: No dysuria, frequency, or change in urination. MUSCULOSKELETAL: No joint or muscle swelling or pain. No neck or back pain. SKIN: No rash NEUROLOGIC: No headache, vertigo, loss of consciousness, or change in strength/ sensation. ENDOCRINE: No increased thirst. No abnormal weight change HEMATOLOGIC/LYMPHATIC: No anemia, easy bleeding, or history of blood clots. ALLERGIC/IMMUNOLOGIC: No hives or skin allergy. Is the patient limited Finnish proficient: No *Physical Exam - Vital Signs Last Vital Signs Temp Pulse Resp BP Pulse Ox 98.1 F 78 18 109/82 100 07/10/18 15:54 07/10/18 15:54 07/10/18 15:54 07/10/18 15:54 07/10/18 15:54 - Physical Exam Comments: 07/10/18 17:10 GENERAL: Awake, alert, and fully oriented, in no acute distress HEAD: No signs of trauma, normocephalic, atraumatic EYES: EOMI, sclera anicteric, conjunctiva pallor ENT: oropharynx clear without exudates. Moist mucosa, pallor of oropharynx NECK: Normal ROM, supple, LUNGS: No distress, speaks full sentences, clear to auscultation bilaterally HEART: Regular rate and rhythm, normal S1 and S2, no murmurs, rubs or gallops, peripheral pulses normal and equal bilaterally. ABDOMEN: Soft, nontender, normoactive bowel sounds. No guarding, no rebound. No masses EXTREMITIES : Normal inspection, Normal range of motion, no edema. No clubbing or cyanosis. NEUROLOGICAL: Cranial nerves II through XII grossly intact. Normal speech, no focal sensorimotor deficits SKIN: Warm, Dry, normal turgor, no rashes or lesions noted ED Treatment Course - LABORATORY CBC & Chemistry Diagram: 07/10/18 17:05 07/10/18 17:05 Medical Decision Making - Medical Decision Making 07/10/18 17:10 22 year old woman with Hx of hidradenitis suppurativa (dx age 14, currently tx with infliximab) and iron deficiency anemia who presented to the ED from PCP for concern over low H/H. Per patient she went to her PCP yesterday for blood tests because she felt weak and lightheaded when standing up. She reports that last week she has had a common cold but denies any recent fevers, chest pain, shortness of breath, abdominal pain, dysuria, hematuria, vaginal bleeding, blood in stool. She takes iron supplrements sporadically bc of the constipation that occurs with tthe supplements. ED Course: consider anemia 2/2 bleeding vs iron def vs pregn 07/10/18 17:11 labwork unremarkable negative orthostatic vitals *DC/Admit/Observation/Transfer Diagnosis at time of Disposition: Anemia, Weakness - Discharge Dispostion Disposition: HOME Condition at time of disposition: Stable Decision to Admit order: No - Referrals - Patient Instructions Printed Discharge Instructions: DI for Iron Deficiency Anemia-Adult Additional Instructions: You were seen in the ED for complaints of low hemoglobin found in office and some weakness. In the ED you were evaluated with labwork. Your results did not show a hemoglobin requiring transfusion. There does not appear to be an acute need for immediate hospitalization. You are advised to follow up with your Primary Care Physician within 1 week. Please take your iron supplements, eat high fiber and energy rich foods and plenty of fluids. Return to the ED immediately if you experience worsening weakness, lightheadedness, nausea, chest pain, shortness of breath. - Post Discharge Activity
[2018-07-10 17:25] LABS: BASO % 0.7 % (0-2.0); EOS % 2.1 % (0-4.5); LYMPH % 28.8 % (8-40); MCH 22.4 pg (25.7-33.7); MCHC 30.9 g/dl (32.0-36.0); MEAN CELL VOLUME 72.7 fl (80-96); MEAN PLT VOLUME 7.4 fl (7.5-11.1); MONO % 4.6 % (3.8-10.2); NEUT % 63.8 % (42.8-82.8); PLATELET COUNT 566 K/MM3 (134-434); RBC 3.58 M/mm3 (3.60-5.2); RDW 17.6 % (11.6-15.6); RETICULOCYTES 1.01 % (0.5-1.5); WHITE BLOOD COUNT 9.1 K/mm3 (4.0-10.0)
[2018-07-10 17:49] LABS: INR 1.25 (0.83-1.09); PROTHROMBIN TIME (PATIENT) 14.8 SEC (9.7-13.0)
[2018-07-10 18:01] LABS: ALBUMIN 2.2 g/dl (3.4-5.0); ALK PHOS 81 U/L (45-117); ANION GAP 5 MMOL/L (8-16); BILIRUBIN,TOTAL 0.2 mg/dL (0.2-1); BLOOD UREA NITROGEN 8 mg/dL (7-18); CALCIUM 8.2 mg/dL (8.5-10.1); CHLORIDE 105 mmol/L (98-107); CO2 28 mmol/L (21-32); CREATININE 0.7 mg/dL (0.55-1.3); GLUCOSE,RANDOM 67 mg/dL (74-106); POTASSIUM 3.7 mmol/L (3.5-5.1); SGOT/AST 13 U/L (15-37); SGPT/ALT 11 U/L (13-61); SODIUM 137 mmol/L (136-145); TOT PROT 9.2 g/dl (6.4-8.2)
[2018-07-10 19:37] VITALS: BP 112/69; PULSE 87
[2018-07-10 20:00] LABS: HCG,QUALITATIVE URINE Negative
[2018-07-10 20:05] LABS: EPI CELLS 1.8 /HPF (0-5/HPF); URINE APPEARANCE CLEAR; URINE BACTERIA 46.2 /hpf (NEGATIVE); URINE BILIRUBIN NEGATIVE (NEGATIVE); URINE CASTS 4 /lpf (0-8); URINE COLOR YELLOW; URINE GLUCOSE (UA) NEGATIVE (NEGATIVE); URINE KETONE NEGATIVE (NEGATIVE); URINE LEUK ESTERASE NEGATIVE (NEGATIVE); URINE NITRITE NEGATIVE (NEGATIVE); URINE PROTEIN NEGATIVE (NEGATIVE); URINE RBC 33 /hpf (0-4); URINE WBC 2 /hpf (0-5)
--- NOTE | 2018-07-10 22:04 | PDOC ---
Documentation entered by Serena German SCRIBE, acting as scribe for Malia Oliveira MD. Malia Oliveira MD: This documentation has been prepared by the Monserrat brunner Renju, SCRIBE, under my direction and personally reviewed by me in its entirety. I confirm that the documentation accurately reflects all work, treatment, procedures, and medical decision making performed by me. Attending Attestation - Resident Resident Name: Shavon Reese - ED Attending Attestation I have performed the following: I have examined & evaluated the patient, The case was reviewed & discussed with the resident, I agree w/resident's findings & plan, Exceptions are as noted - HPI HPI: 07/10/18 18:10 The patient is a 22 year old female with a history of hidradenitis suppurativa ( on infliximab), iron deficiency anemia, gastric sleeve (2018), who presents to the emergency department from her primary doctors office for evaluation of low hematocrit and hemoglobin. Patient reports visiting her PCP office yesterday due to her symptoms of lightheadedness and generalized weakness. Patients LNMP : 06/12/18. She endorses one prior blood transfusion in the past. She currently endorses lightheadedness and nausea. Patient denies any chest pain, abdominal pain, shortness of breath, dysuria, hematuria, heavy vaginal bleeding, and blood in stool. Allergies: hydrocodone bitartrate OBGYN: Dr. Enrique - Physicial Exam PE: 07/10/18 18:11 GENERAL: Well developed, well nourished. Awake and alert. No acute distress. HEENT: Normocephalic, atraumatic. PERRLA, EOMI. No conjunctival pallor. Sclera are non- icteric. NECK: Supple. Full ROM. CARDIOVASCULAR: Regular rate and rhythm. No murmurs, rubs, or gallops. PULMONARY: No evidence of respiratory distress. Lungs clear to auscultation bilaterally. No wheezing, rales or rhonchi. ABDOMINAL: Soft. Non-tender. Non-distended. No rebound or guarding. MUSCULOSKELETAL Normal range of motion at all joints. No bony deformities or tenderness. No CVA tenderness. EXTREMITIES: No cyanosis. No clubbing. No edema. No calf tenderness. SKIN: Warm and dry. Normal capillary refill. No rashes. No jaundice. NEUROLOGICAL: Alert, awake, appropriate. No focal deficits. PSYCHIATRIC: Cooperative. Good eye contact. Appropriate mood and affect. - Medical Decision Making 07/10/18 21:55 pt was not orthostatic hbg=8 ,it has been lower at 6 in the past she is not currently menstruating pt is taking iron negative test dhe does not have shortness of breath or chest pain imp anemia/take iron supplements 07/10/18 22:03
[2018-07-12 08:06] LABS: SERUM IRON SATURATION 7 % (15-55); TOTAL IRON BINDING CAPACITY 252 ug/dL (250-450); UIBC 235 ug/dL (131-425)
== END 2018-07-10 20:28 | disposition home or self-care (01) ==
LOC: JER 15:32
PROC: 3E0337Z Introduction of Electrolytic and Water Balance Substance into Peripheral Vein, Percutaneous Approach (ICD-10-PCS; principal; 2018-07-10)
DX: D50.9 Iron deficiency anemia, unspecified (principal); L73.2 Hidradenitis suppurativa; F32.9 Major depressive disorder, single episode, unspecified
CPT/HCPCS: 36415; 80053; 81003; 82728; 83540; 83550; 84443; 84703; 85025; 85044; 85610; 86850; 86900; 86901; 96360; 99282-25; J7030